=== PATIENT | female | born 1995 | race Caucasian/White ===

== ENCOUNTER 2024-06-15 02:22 | Emergency (ER) | payer OTHER ==
[2024-06-15 03:50] LABS: #Basophils 0.03 10x3/uL (0.0-0.2); #Eosinophils 0.16 10x3/uL (0.0-0.5); #Monocytes 0.66 10x3/uL (0.0-1.1); #Neutrophils 4.94 10x3/uL (1.5-8.4); %Basophils 0.4 % (0.0-2.0); %Eosinophils 2.2 % (0.0-6.0); %Lymphocytes 21.7 % (18.0-47.0); %Monocytes 8.9 % (0.0-10.0); %Neutrophils 66.5 % (40.0-75.0); Hemoglobin 12.8 g/dL (12.0-15.5); Mean Corpuscular HGB CONC 33.7 g/dL (32.0-36.0); Mean Corpuscular Hemoglobin 28.4 pg (27.0-33.0); Mean Corpuscular Volume 84.4 fL (81.6-98.3); Mean Platelet Volume 10.6 fL (7.4-10.4); Platelet Count 188 10x3/uL (150-450); RBC Distribution Width 11.9 % (11.5-14.5); White Blood Cell (WBC) Count 7.4 10x3/uL (3.5-10.5)
[2024-06-15 04:02] LABS: ALT (SGPT) 20 U/L (8-55); AST (SGOT) 15 U/L (5-34); Albumin 3.8 g/dL (3.5-5.0); Alkaline Phosphatase 78 U/L (40-110); Anion Gap 16 mmol/L (10-20); BUN (Urea Nitrogen) 10 mg/dL (7.0-18.7); Bilirubin, Total 0.2 mg/dL (0.2-1.2); Calc. Creatinine Clearance 0 mL/min (70-130); Calcium 9.7 mg/dL (7.8-10.44); Carbon Dioxide 21 mmol/L (22-29); Chloride 105 mmol/L (98-107); Estimated GFR 120; Glucose 114 mg/dL (70-105); Potassium 3.8 mmol/L (3.5-5.1); Protein, Total 6.8 g/dL (6.0-8.3); Sodium 138 mmol/L (136-145)
[2024-06-15] MEDS ORDERED: Acetaminophen 500 MG TAB ONE (04:04)
[2024-06-15] MEDS ORDERED: Ibuprofen 200 MG TAB ONE (04:07)
[2024-06-16 13:56] LABS: Chlamydia by PCR, Vaginal Swab Not Detected (NotDetected); GC by PCR, Vaginal Swab Not Detected (NotDetected)
== END 2024-06-15 05:08 | disposition home or self-care (01) ==
LOC: CSHERS 02:22
DX: O03.9 Complete or unspecified spontaneous abortion without complication (principal)
CPT/HCPCS: 36415; 76856; 80053; 84702; 85025; 86900; 86901; 87480; 87491; 87510; 87591; 87660

== ENCOUNTER 2025-06-17 12:05 | Inpatient (IN) | payer OTHER ==
[2025-06-17] MEDS ORDERED: Tranexamic Acid 1,000 MG/10 ML VIAL IVP PRN (12:49)
[2025-06-17] MEDS ORDERED: Methylergonovine 0.2 MG/ML VIAL IM PRN (12:49)
[2025-06-17] MEDS ORDERED: hydrALAZINE 20 MG/ML VIAL SLOW IVP PRN (12:49)
[2025-06-17] MEDS ORDERED: Acetaminophen 500 MG TAB PO PRN (12:49)
[2025-06-17] MEDS ORDERED: Diphenoxylate HCl/Atropine Tablet PO PRN ×2 (12:49)
[2025-06-17] MEDS ORDERED: Carboprost 250 MCG/ML AMP IM PRN (12:49)
[2025-06-17] MEDS ORDERED: Ondansetron PF 4 MG/2 ML Vial IVP PRN (12:49)
[2025-06-17] MEDS ORDERED: Lidocaine 1% (PF) 30 ML VIAL SC PRN (12:49)
[2025-06-17] MEDS ORDERED: Oxytocin 30 units/NS 500 ML 500 ML IV SCH ×3 (13:00)
[2025-06-17] MEDS: Fluconazole 100 MG TAB PO SCH (13:52)
[2025-06-17 14:07] LABS: Glucose 98 mg/dL (70-105)
[2025-06-17 14:19] LABS: Syphilis Antibody Index 0.07 S/CO (<1.00 Non-Reactive)
[2025-06-17 14:21] LABS: Hep B Surf Ag - L&D Non-Reactive S/CO (NonReactive)
[2025-06-17 14:21] LABS: Hematocrit 38.3 % (34.9-44.5); Hemoglobin 13.0 g/dL (12.0-15.5); Mean Corpuscular Hemoglobin 28.8 pg (27.0-33.0); Mean Corpuscular Volume 84.7 fL (81.6-98.3); Platelet Count 178 10x3/uL (150-450); Red Blood Cell (RBC) Count 4.52 10x6/uL (3.90-5.03); White Blood Cell (WBC) Count 11.07 10x3/uL (3.5-10.5)
[2025-06-17] MEDS ORDERED: Dextrose 50% Abboject 50 ML SYRINGE SLOW IVP PRN (18:56)
[2025-06-17] MEDS ORDERED: Glucagon 1 MG/ML KIT IM PRN (18:56)
[2025-06-18] MEDS: fentaNYL 2 mcg/Ropivacaine 0.2% Epidural 100 ML CADD EPIDURAL SCH (00:10)
[2025-06-18] MEDS ORDERED: diphenhydrAMINE 50 MG/ML VIAL IVP PRN ×2 (00:30→16:30)
[2025-06-18] MEDS ORDERED: Acetaminophen 325 MG TAB PO PRN (00:30)
[2025-06-18] MEDS ORDERED: Communication Order-Pharmacy FS SCH ×2 (00:30→16:30)
[2025-06-18] MEDS ORDERED: Ondansetron PF 4 MG/2 ML Vial IVP PRN ×4 (00:30→16:30)
[2025-06-18] MEDS ORDERED: Famotidine/PF 20 mg/2ml Vial SLOW IVP PRN (10:33)
[2025-06-18] MEDS ORDERED: Bicitra 30 ML UDCUP PO PRN (10:33)
[2025-06-18] MEDS ORDERED: Azithromycin 500 MG in Sodium Chloride 0.9% 250 ML 250 ML IVPB SCH (10:45)
[2025-06-18] MEDS ORDERED: HYDROcodone/Acetaminophen 5/325 mg Tablet PO PRN ×2 (11:16)
[2025-06-18] MEDS ORDERED: diphenhydrAMINE 25 MG CAP PO PRN (11:16)
[2025-06-18] MEDS ORDERED: Lanolin Ointment 7 GM TUBE TOP PRN (11:16)
[2025-06-18] MEDS ORDERED: hydrALAZINE 20 MG/ML VIAL SLOW IVP PRN (11:16)
[2025-06-18] MEDS ORDERED: Bisacodyl 10 MG SUPP PR PRN (11:16)
[2025-06-18] MEDS ORDERED: Oxytocin 30 units/NS 500 ML 500 ML IV SCH (11:16)
[2025-06-18] MEDS: fentaNYL/Ropivacaine Epidural 100 ML ONE (14:31)
[2025-06-18] MEDS: Azithromycin 500 MG VIAL ONE ×2 (14:31)
[2025-06-18] MEDS: CEFAZOLIN 2 GM VIAL ONE ×2 (14:31)
[2025-06-18] MEDS: Ibuprofen 800 MG TAB PO SCH (14:33)
[2025-06-18] MEDS: Oxytocin 10 UNITS/ML VIAL ONE (14:33)
[2025-06-18] MEDS ORDERED: Ketorolac Tromethamine 30 MG (1 mL) VIAL IVP SCH (16:30)
[2025-06-18] MEDS ORDERED: Meperidine HCl/PF 25 MG (1 mL) VIAL SLOW IVP PRN (16:30)
[2025-06-18] MEDS: Ketorolac Tromethamine 30 MG (1 mL) VIAL IVP PRN (18:08)
[2025-06-19] MEDS: Simethicone Chewable 80 MG TAB PO PRN (00:49)
[2025-06-19 03:49] LABS: Hematocrit 31.3 % (34.9-44.5); Hemoglobin 10.6 g/dL (12.0-15.5); Mean Corpuscular Hemoglobin 29.4 pg (27.0-33.0); Mean Corpuscular Volume 86.7 fL (81.6-98.3); Platelet Count 134 10x3/uL (150-450); Red Blood Cell (RBC) Count 3.61 10x6/uL (3.90-5.03); White Blood Cell (WBC) Count 10.91 10x3/uL (3.5-10.5)
[2025-06-19] MEDS: Ferrous Sulfate 325 MG TAB PO SCH (03:58)
[2025-06-19] MEDS: HYDROcodone/Acetaminophen 5/325 mg Tablet PO PRN ×2 (12:59→16:52)
[2025-06-19] MEDS: Ibuprofen 800 MG TAB PO SCH (21:17)
[2025-06-20 07:55] VITALS: BP 126/58; TEMP 98.1
== END 2025-06-20 16:14 | disposition home or self-care (01) | DRG 788 ==
LOC: CSHLD/OP 12:05 → CSHLD 12:45 → CSHPED 06-18 14:00
PROVIDERS: ADMIT Obstetrics & Gynecology; ATTEND Obstetrics & Gynecology
PROC: 10D00Z1 Extraction of Products of Conception, Low, Open Approach (ICD-10-PCS; principal; 2025-06-18)
PROC: 4A1HXCZ Monitoring of Products of Conception, Cardiac Rate, External Approach (ICD-10-PCS; 2025-06-18)
PROC: 10H07YZ Insertion of Other Device into Products of Conception, Via Natural or Artificial Opening (ICD-10-PCS; 2025-06-18)
DX: O42.92 Full-term premature rupture of membranes, unspecified as to length of time between rupture and onset of labor (principal); O24.424 Gestational diabetes mellitus in childbirth, insulin controlled; O99.344 Other mental disorders complicating childbirth; O34.211 Maternal care for low transverse scar from previous cesarean delivery; O69.82X0 Labor and delivery complicated by other cord entanglement, without compression, not applicable or unspecified; O26.893 Other specified pregnancy related conditions, third trimester; O76 Abnormality in fetal heart rate and rhythm complicating labor and delivery; F32.A Depression, unspecified; G47.00 Insomnia, unspecified; Z79.4 Long term (current) use of insulin; Z79.84 Long term (current) use of oral hypoglycemic drugs; Z79.899 Other long term (current) drug therapy; Z3A.37 37 weeks gestation of pregnancy
CPT/HCPCS: 36415; 36416; 51702; 82947; 85027; 86780; 86850; 86900; 86901; 87340; 99285; J1885; J2274; J2590; J7120